=== PATIENT | male | born 1970 | race Caucasian/White ===

== ENCOUNTER 2023-12-04 15:00 | Outpatient (RCR) | payer BC, SELFPAY ==
[2023-10-03 13:38] VITALS: BMI 36.3
[2023-10-03 13:40] VITALS: BMI 36.3
[2023-11-14 15:00] VITALS: BMI 35.7
[2023-11-14 15:03] VITALS: BMI 35.7
[2023-12-04 15:04] VITALS: BMI 35.5
[2023-12-04 16:08] VITALS: BMI 35.5
== END 2023-12-17 08:29 | disposition home or self-care (01) ==
LOC: ANHDMC 15:00
PROVIDERS: PCP Family Medicine; Visit Provider Physician Assistant
DX: E11.9 Type 2 diabetes mellitus without complications (principal); R74.8 Abnormal levels of other serum enzymes; Z71.3 Dietary counseling and surveillance
CPT/HCPCS: 97802; 97803

== ENCOUNTER 2025-06-04 17:22 | Outpatient (CLI) | payer BC, SELFPAY ==
--- NOTE | ~2025-06-04 | XR_ITS ---
EXAMINATION: XR hip LT 2V w AP pelvis, 06/04/2025 17:27 CDT HISTORY: M25.552 - Pain in left hip WHEN TWISTING IN JOINT AREA X2 MO COMPARISON: No comparisons available. Findings: No acute fracture or malalignment. No significant degenerative changes. Soft tissues unremarkable. Impression: No acute fracture or malalignment. Reviewed, dictated and finalized at location A. Impression: No acute fracture or malalignment.
== END 2025-06-04 17:23 | disposition home or self-care (01) ==
PROVIDERS: PCP Family Medicine; Visit Provider Family Medicine
DX: M25.552 Pain in left hip (principal)
CPT/HCPCS: 73502